=== PATIENT | female | born 1970 | race Caucasian/White ===

== ENCOUNTER 2016-12-10 12:13 | Emergency (ER) | payer OTHER ==
[2016-06-04 07:42] VITALS: BMI 40.3
[~2016-12-10 12:13] MED LIST: HYDROCODON-ACE1 EAC7 PO; IBUPROFEN800 MG PO; LISINOPRIL10 MG PO; MECLIZINE HCL12.5 MG PO; PERCOCET 10/3251 TA1 PO; ULTRAM50 MG PO
[2016-12-10 13:54] LABS: BASOPHILS 0.1 % (0.0-2.0); HEMATOCRIT 47.6 % (36.0-48.0); HEMOGLOBIN 16.3 g/dL (12-16); IMMATURE GRANULOCYTES 0.3 % (0-5); MCH 29.1 pg (26.0-34.0); MCHC 34.2 g/dL (31.0-37.0); MCV 84.8 fL (80.0-100.0); MEAN PLATELET VOLUME 9.6 fL (7.4-10.4); MONOCYTES 7.1 % (2-11); NEUTROPHILS 76.5 % (40-80); PLATELET COUNT 280 10x3/uL (130-400); RBC 5.61 10x6/uL (4.00-5.40); RDW 12.6 % (11.5-14.5); WBC 13.3 10x3/uL (4.8-10.8)
[2016-12-10 14:13] LABS: ALBUMIN 3.9 g/dL (3.4-5.0); ALKALINE PHOSPHATASE 83 U/L (46-116); ALT (SGPT) 23 U/L (10-68); CALC OSMOLALITY 280 mosm/kg (275-300); CALCIUM 9.4 mg/dL (8.5-10.1); CARBON DIOXIDE 25.1 mmol/L (21.0-32.0); CHLORIDE - SERUM 103 mmol/L (98-107); CREATININE - SERUM 0.7 mg/dL (0.6-1.3); GLUCOSE 119 mg/dL (74-106); POTASSIUM - SERUM 3.7 mmol/L (3.5-5.1); PROTEIN - SERUM 8.5 g/dL (6.4-8.2); SODIUM 140 mmol/L (136-145); UREA NITROGEN 14 mg/dL (7-18); eGFR NON AFRICAN AMERICAN > 90 mL/min (90-120)
[2016-12-10 20:19] LABS: APPEARANCE CLEAR (CLEAR); BILIRUBIN NEGATIVE (NEGATIVE); COLOR YELLOW (YELLOW); GLUCOSE NEGATIVE (NEGATIVE); KETONE MODERATE mg/dL (NEGATIVE); LEUKOCYTE ESTERASE NEGATIVE (NEGATIVE); NITRITE NEGATIVE (NEGATIVE); PROTEIN TRACE mg/dL (NEGATIVE); SPECIFIC GRAVITY 1.025 (1.005-1.020); UROBILINOGEN NORMAL (NORMAL)
== END 2016-12-10 21:34 | disposition home or self-care (01) ==
LOC: D.ER 12:13
PROVIDERS: Emergency Medicine
DX: R19.7 Diarrhea, unspecified (principal); R10.9 Unspecified abdominal pain; I10 Essential (primary) hypertension

== ENCOUNTER 2017-04-26 20:35 | Emergency (ER) | payer OTHER ==
[2016-06-04 07:42] VITALS: BMI 40.3
[2017-04-26 22:38] LABS: CKMB 0.3 U/L (0.0-3.6); CREATINE KINASE 64 UL (21-215); TROPONIN-I < 0.017 ng/mL (0.000-0.060)
== END 2017-04-26 23:08 | disposition home or self-care (01) ==
LOC: D.ER 20:35
PROVIDERS: Physician Assistant Medical
DX: M19.012 Primary osteoarthritis, left shoulder (principal); I10 Essential (primary) hypertension; F17.200 Nicotine dependence, unspecified, uncomplicated; I49.3 Ventricular premature depolarization

== ENCOUNTER 2017-12-25 13:06 | Emergency (ER) | payer OTHER ==
[2016-06-04 07:42] VITALS: BMI 40.3
[2017-12-25 15:03] LABS: BASOPHILS 0.2 % (0-2); EOSINOPHILS 3.6 % (0-7); HEMATOCRIT 40.8 % (36.0-48.0); IMMATURE GRANULOCYTES 0.2 % (0-5); LYMPHOCYTES 24.3 % (15-50); MCH 29.3 pg (26.0-34.0); MCHC 34.3 g/dL (31.0-37.0); MCV 85.4 fL (80.0-100.0); MEAN PLATELET VOLUME 9.3 fL (7.4-10.4); MONOCYTES 9.2 % (2-11); NEUTROPHILS 62.5 % (40-80); PLATELET COUNT 258 10x3/uL (130-400); RBC 4.78 10x6/uL (4.00-5.40); RDW 11.9 % (11.5-14.5); WBC 8.1 10x3/uL (4.8-10.8)
[2017-12-25 15:17] LABS: APPEARANCE CLEAR (CLEAR); BILIRUBIN NEGATIVE (NEGATIVE); COLOR DK YELLOW (YELLOW); GLUCOSE NEGATIVE (NEGATIVE); KETONE NEGATIVE (NEGATIVE); NITRITE NEGATIVE (NEGATIVE); PROTEIN NEGATIVE (NEGATIVE); UROBILINOGEN NORMAL (NORMAL)
[2017-12-25 15:17] LABS: ALBUMIN 3.7 g/dL (3.4-5.0); ANION GAP 17.2 mmol/L (8-16); BILIRUBIN - TOTAL 1.38 mg/dL (0.2-1.3); CALCIUM 9.7 mg/dL (8.5-10.1); CARBON DIOXIDE 24.5 mmol/L (21.0-32.0); CREATININE - SERUM 0.9 mg/dL (0.6-1.3); POTASSIUM - SERUM 3.7 mmol/L (3.5-5.1); PROTEIN - SERUM 8.3 g/dL (6.4-8.2)
== END 2017-12-25 16:16 | disposition home or self-care (01) ==
LOC: D.ER 13:06
PROVIDERS: Family Medicine
DX: R53.1 Weakness (principal); I10 Essential (primary) hypertension

== ENCOUNTER 2018-05-31 22:58 | Emergency (ER) | payer OTHER ==
[~2018-05-31] VITALS: Ht 157.5 cm; Wt 103.2 kg
[2018-05-31 23:02] VITALS: Ht 157.5 cm; Wt 103.2 kg
[2018-05-31] MEDS ORDERED: BUPRENORPHIN-N1 EACH (23:04)
[2018-05-31 23:54] LABS: BASOPHILS 0.2 % (0-2); EOSINOPHILS 2.1 % (0-7); HEMATOCRIT 37.9 % (36.0-48.0); HEMOGLOBIN 12.9 g/dL (12-16); IMMATURE GRANULOCYTES 0.3 % (0-5); MCH 29.2 pg (26.0-34.0); MCV 85.7 fL (80.0-100.0); MEAN PLATELET VOLUME 8.9 fL (7.4-10.4); MONOCYTES 10.1 % (2-11); NEUTROPHILS 57.3 % (40-80); PLATELET COUNT 259 10x3/uL (130-400); RBC 4.42 10x6/uL (4.00-5.40); RDW 12.8 % (11.5-14.5); WBC 8.6 10x3/uL (4.8-10.8)
[2018-05-31 23:55] LABS: APPEARANCE CLEAR (CLEAR); BILIRUBIN NEGATIVE (NEGATIVE); COLOR DK YELLOW (YELLOW); GLUCOSE NEGATIVE (NEGATIVE); KETONE MODERATE mg/dL (NEGATIVE); NITRITE NEGATIVE (NEGATIVE); PROTEIN NEGATIVE (NEGATIVE); UROBILINOGEN NORMAL (NORMAL)
[2018-06-01 00:10] LABS: ALBUMIN 3.3 g/dL (3.4-5.0); ALKALINE PHOSPHATASE 58 U/L (46-116); ALT (SGPT) 29 U/L (10-68); CALC OSMOLALITY 277 mosm/kg (275-300); CALCIUM 8.9 mg/dL (8.5-10.1); CARBON DIOXIDE 27.5 mmol/L (21.0-32.0); CHLORIDE - SERUM 102 mmol/L (98-107); CREATININE - SERUM 0.8 mg/dL (0.6-1.3); GLUCOSE 96 mg/dL (74-106); POTASSIUM - SERUM 3.8 mmol/L (3.5-5.1); PROTEIN - SERUM 7.4 g/dL (6.4-8.2); SODIUM 138 mmol/L (136-145); UREA NITROGEN 18 mg/dL (7-18); eGFR NON AFRICAN AMERICAN 81 mL/min (90-120)
[2018-06-01 00:30] LABS: CKMB 0.8 U/L (0.0-3.6); CREATINE KINASE 51 UL (21-215); PRO BNP 14 pg/mL (0-125); TROPONIN-I < 0.017 ng/mL (0.000-0.060)
[2018-06-01 01:06] VITALS: BP 113/75
== END 2018-06-01 01:07 | disposition home or self-care (01) ==
LOC: D.ER 22:58
PROVIDERS: Family Medicine
DX: R06.02 Shortness of breath (principal); R53.1 Weakness; I10 Essential (primary) hypertension

== ENCOUNTER 2018-06-23 07:15 | Outpatient (CLI) | payer OTHER ==
[~2018-06-23] VITALS: Ht 157.5 cm; Wt 103.2 kg
--- NOTE | ~2018-06-23 | HEMODYNAMI ---
PATIENT:AYESHA LEUNG MEDICAL RECORD: [id number] : 68 LOCATION:[facility] ADMISSION DATE: 06/23/18 Generatedon:06/23/201811:39 Patient name: AYESHA LEUNG Patient #: [id number] SSN: : 1970 Date of study: 06/23/2018 Page: Of Hemodynamic Procedure Report Patient Data Patient Demographics Procedure consent was obtained First Name: AYESHA Gender: Female Last Name: MADHU : 1970 Middle Initial: L Age: 47 year(s) Patient #: [id number] Race: Unknown Additional ID: [id number] Contact details Address: [address] [place] [address] [place] [address] State: [place] City: [place] Zip code: [address] Admission Admission Data Admission Date: 06/23/2018 Admission Time: 7:15 Procedure Procedure Types Cath Procedure Diagnostic Procedure LHC LHC w/Coronaries Procedure Description Procedure Date Procedure Date: 06/23/2018 Procedure Start Time: 11:27 Procedure End Time: 11:37 Procedure Staff Name Function Forest Benavidez MD Performing Physician Josephine Jeffers RT Monitor Lacey Cedeno RT Scrub Bay Judge RN Nurse Marialuisa Maldonado RN Nurse Procedure Data Cath Procedure Fluoroscopy Diagnostic fluoroscopy Total fluoroscopy Time: 2.7 time: 2.7 min min Diagnostic fluoroscopy Total fluoroscopy dose: 569 dose: 569 mGy mGy Contrast Material Contrast Material Type Amount (ml) Isovue 300 62 Entry Location Entry Primary Successful Side Size Upsize Upsize Entry Closure Reyes ccessful Closure Location (Fr) 1 (Fr) 2 (Fr) Remarks Device Remarks Radial Right 6 Fr Mechanical TR artery Short Compression Estimated blood loss: 10 ml Diagnostic catheters Device Type Used For End Catheter Placement DIAGNOSTIC [place] 110cm 5 Procedure Fr catheter ([id number]) Procedure Complications No complications Procedure Medications Medication Administration Route Dosage Oxygen etCO2 Nasal cannula 2 l/min Lidocaine 2% added to field 20 Heparin Flush Bag added to field 2 bags (1000units/500ml NS) 0.9% NaCl I.V. 100 ml/hr Versed I.V. 2 mg Fentanyl I.V. 50 mcg Versed I.V. 2 mg Radial Cocktail I.A. 1 syringe (Verapomil 2mg/Nitro 400mcg/Heparin 1500units) Hemodynamics Rest Heart Rate: 86 (bpm) Snapshots Pre Cath Intra NCS Post Cath Vital Signs Time Heart Resp SPO2 etCO2 NIBP (mmHg) Rhythm Pain Sedation Rate (ipm) (%) (mmHg) Status Level (bpm) 11:16:22 84 17 100 0 143/78(107) NSR 0 (11) 10(A) , No pain 11:20:36 86 19 100 0 131/79(117) NSR 0 (11) 10(A) , No pain 11:24:50 85 17 99 17.3 139/80(107) NSR 0 (11) 10(A) , No pain 11:29:00 91 15 99 20.3 115/85(97) NSR 0 (11) 9(A) , No pain 11:33:58 93 28 98 21.8 129/78(91) NSR 0 (11) 10(A) , No pain 11:38:51 81 22 100 21.1 126/71(96) NSR 0 (11) 10(A) , No pain Medications Time Medication Route Dose Verified Delivered Reason Notes Effectiveness by by 11:24:13 Oxygen etCO2 2 l/min Forest [place] used for Nasal Pramod Judge RN procedure cannula 11:24:20 Lidocaine 2% added 20ml Forest Buffie used for to vial Pramod Judge RN procedure field 11:24:30 Heparin Flush added 2 bags Forest Buffie used for Bag to Pramod Judge RN procedure (1000units/500ml field NS) 11:24:37 0.9% NaCl I.V. 100 Forestlavell [place] Per ml/hr Pramod Judge RN physician 11:26:18 Versed I.V. 2 mg Forest [place] for sedation Pramod Judge RN 11:26:23 Fentanyl I.V. 50 mcg Forest [place] for sedation Pramod Judge RN 11:28:12 Radial Cocktail I.A. 1 Forest Garg for (Verapomil syringe Pramod Benavidez MD vasodilation 2mg/Nitro 400mcg/Heparin 1500units) 11:30:12 Versed I.V. 2 mg Forest [place] for sedation Pramod Judge skill labor Log Time Note 11:04:35 Lacey Wilian RT(R) sent for patient. Start room use. 11:04:35 Time tracking: Regular hours (M-F 7:00 - 5:00) 11:05:32 Plan of Care:Hemodynamics will remain stable., Cardiac rhythm will remain stable., Comfort level will be maintained., Respiratory function will remain adequate., Patient/ family verbilizes understanding of procedure., Procedure tolerated without complication., Recovers from procedure without complications.. 11:05:37 Patient received from Pre/Post Procedure Room to CCL 2 Alert and oriented. Tansferred to table in Supine position. 11:15:11 Warm blankets applied, and christo hugger turned on for patient comfort. 11:15:12 Correct patient and procedure confirmed by team. 11:15:14 Signed procedure consent form obtained from patient. 11:15:15 ECG and BP/O2 sat monitors applied to patient. 11:15:16 Vital chart was started 11:15:19 Baseline sample Acquired. 11:15:21 Full Disclosure recording started 11:15:24 H&P Date Dictated: 06/23/2018 Within 30 days and on chart.. 11:15:26 Pre-procedure instructions explained to patient. 11:15:26 Pre-op teaching completed and patient verbalized understanding. 11:15:28 Family in patients room. 11:15:29 Patient NPO since Midnight. 11:15:31 Is the patient allergic to Iodine/contrast media? No. 11:15:32 Was the patient premedicated? No 11:15:33 Is patient on blood thinner?No 11:22:37 Patient diabetic? No. 11:22:46 Snore? Unknown 11:22:47 Sleep apnea? No 11:22:49 Deviated septum? No 11:22:51 Opens mouth fully? Yes 11:22:52 Sticks out tongue? Yes 11:22:56 Dentures? No ? 11:23:05 IV patent on arrival in left hand with 0.9% NaCl at KVO. 11:23:10 Lab results completed and on chart. 11:23:14 Right Radial & Right Groin area was prepped with chlora-prep and draped in sterile fashion 11:23:15 Alarms reviewed by R. N. 11:23:16 Sharps counted by scrub and verified by R.N. 11:23:21 Physician paged 11:23:26 Use device set Radial Dx or PCI 11:23:28 ACIST Syringe (47093) opened to sterile field. 11:23:28 Medline Cath Pack ([id number]) opened to sterile field. 11:23:29 Bag Decanter (2002S) opened to sterile field. 11:23:29 DIAGNOSTIC WIRE .035 260cm J wire (562800) opened to sterile field. 11:23:30 ACIST Hand Control (22990) opened to sterile field. 11:23:31 ACIST Manifold (14651) opened to sterile field. 11:23:31 Tegaderm 4 x 4 (1626W) opened to sterile field. 11:23:32 MBrace Wrist Support ([id number]) opened to sterile field. 11:23:33 NEEDLE Cook 21G 4cm Radial ([id number]) opened to sterile field. 11:23:37 SHEATH 6Fr Prelude Radial ([id number]) opened to sterile field. 11:24:13 Oxygen 2 l/min etCO2 Nasal cannula was administered by Bay Judge RN; used for procedure; 11:24:20 Lidocaine 2% 20ml vial added to field was administered by Bay Judge RN; used for procedure; 11:24:30 Heparin Flush Bag (1000units/500ml NS) 2 bags added to field was administered by Bay Judge RN; used for procedure; 11:24:37 0.9% NaCl 100 ml/hr I.V. was administered by Bay Judge RN; Per physician; 11:25:34 Physician arrived 11::35 --------ALL STOP TIME OUT------ 11::35 Final Timeout: patient, procedure, and site verified with staff and physician. All members of the team are in agreement. 11:25:38 Right Radial & Right Groin site verified by team. 11:25:41 Physical assessment completed. ASA score P 2 - A patient with mild systemic disease as per Forest Benavidez MD. 11:25:44 Sedation plan: IV Moderate Sedation Medication:Versed, Fentanyl 11:26:18 Versed 2 mg I.V. was administered by Bay Judge RN; for sedation; 11::23 Fentanyl 50 mcg I.V. was administered by Bay Judge RN; for sedation; 11::32 Procedure started. 11::41 Local anesthetic to right radial artery with Lidocaine 2% by Forest Benavidez MD.INITIAL ACCESS ONLY 11:27:51 A 6 Fr Short sheath was inserted into the Right Radial artery 11::02 A DIAGNOSTIC [place] 110cm 5 Fr catheter ([id number]) was advanced over the wire and used for Procedure. 11:28:12 Radial Cocktail (Verapomil 2mg/Nitro 400mcg/Heparin 1500units) 1 syringe I.A. was administered by Forest Benavidez MD; for vasodilation; 11:29:05 LV angiography performed. 11:30:05 LV gram done using ALEXANDER 11:30:09 EF : 60 % 11:30:12 Versed 2 mg I.V. was administered by Bay Judge RN; for sedation; 11:30:18 RCA angiography performed. 11:31:43 GUIDE 6FR XBLAD 3.5 catheter ([id number]) opened to sterile field. 11:31:48 LCA angiography performed. 11:33:46 Catheter removed. 11:34:01 TR BAND Standard ([id number]) opened to sterile field. 11:34:52 Sheath removed intact; hemostasis achieved with Mechanical Compression to the Right Radial artery. 11:35:09 Procedure ended.(Physican Out) 11:35:50 Fluoroscopy time 02.70 minutes. 11:35:55 Fluoroscopy dose: 569 mGy 11:35:55 Flurop Dose total: 569 11:35:59 Contrast amount:Isovue 300 62ml. 11:36:00 Sharps counted by scrub and verified by R.N. 11:36:02 TR band inflated with 11cc of air. 11:36:03 Insertion/operative site no bleeding no hematoma. 11:36:05 Post Procedure Pulses reassessed and unchanged 11:36:08 Post-procedure physical assessment completed. ASA score P 2 - A patient with mild systemic disease as per Forest Benavidez MD. 11:36:12 Post procedure rhythm: unchanged. 11:36:15 Estimated blood loss: 10 ml 11:36:17 Post procedure instruction explained to patient.Patient verbalizes understanding. 11:36:30 Procedure and supply charges have been captured, reviewed, submitted and are correct. 11:36:53 Procedure Complication : No complications 11:36:56 Vital chart was stopped 11:36:56 See physician's report for complete and final results. 11:36:58 Report given to Pre/Post Procedure Room. 11:37:01 Patient transfered to Pre/Post Procedure Room with Stretcher. 11:37:03 Procedure ended. 11:37:03 Full Disclosure recording stopped 11:37:11 End room use (Document Last) Device Usage Item Name Manufacture Quantity Catalog Number Hospital Part Current M inimal Lot# / Charge Number Stock Stock Serial# Code ACIST Syringe Acist 1 60836 [id number] 287240 412819 2 0 (95902) [employer] Medline Cath Medline 1 [id number] 679715 68901 235193 5 Pack ([id number]) Bag Decanter Microtek 1 2001S 769415 24711 547891 5 (2001S) Medical Inc. DIAGNOSTIC WIRE St Zac 1 256296 919653 990487 379396 3 0 .035 260cm J wire (536579) ACIST Hand Acist 1 07521 288336 923615 173209 5 Control (02286) [employer] Inc ACIST Manifold Acist 1 51717 697269 720413 728699 5 (92104) [employer] Inc Tegaderm 4 x 4 3M 1 1626W 817728 526942 294102 5 (1626W) MBrace Wrist Advanced 1 140-0250-00 219472 04146 186706 5 Support Vascular ([id number]) Dynamics NEEDLE Cook 21G Cook Medical 1 [id number] 916445 064288 223853 5 4cm Radial (U47809) SHEATH 6Fr Merit 1 [id number] 884679 637820 064251 5 Prelude Radial Medical ([id number]) DIAGNOSTIC Terumo 1 40-4780 989783 760329 416534 5 [place] 110cm 5 Fr catheter (063132) GUIDE 6FR XBLAD Cardinal 1 [id number] 435469 877830 117065 1 0 3.5 catheter Health ([id number]) TR BAND Terumo 1 [id number] 027818 575379 412594 4 0 Standard ([id number]) Signature Audit [place] Stage Time Signature Unsigned Intra-Procedure 06/23/2018 Josephine Jeffers 11:39:43 AM RT(R) Signatures Monitor : Josephine Jeffers Signature : RT Date : Time : [address] [place] [address]
--- NOTE | ~2018-06-23 | OP ---
PATIENT NAME: AYESHA LEUNG MEDICAL RECORD: [id number] :68 LOCATION:[facility] ADMISSION DATE: SURGEON: ORESTES PORTER MD DATE OF OPERATION: 06/23/2018 PROCEDURES: 1. Left heart catheterization. 2. Selective coronary angiography. 3. Left ventriculogram. INDICATION: Chest pain compatible with angina. PROCEDURE IN DETAIL: After informed consent was obtained with detailed description of risks and benefits as well as alternative therapies, the patient elected to proceed with angiogram and heart catheterization. The right radial area was prepped and draped in normal sterile fashion. The right radial artery was cannulated via modified Seldinger technique with placement of 6-[place] sheath. All catheters were exchanged through this sheath. FINDINGS: Left ventriculogram performed in standard 30-degree ALEXANDER view reveals good cardiac wall motion throughout all segments. Overall ejection fraction 55% to 60%. SELECTIVE CORONARY ANGIOGRAPHY: Left main, left anterior descending, left circumflex, and right coronary artery are smooth-walled vessels with no angiographic evidence of coronary artery disease. OVERALL IMPRESSION: 1. No angiographic evidence of coronary artery disease. 2. Normal left heart pressures. 3. Normal left ventricular systolic function. Chest pain is noncardiac in etiology. No further cardiac workup needs to be ascertained. TRANSINT:[id number] Voice Confirmation ID: [id number] DOCUMENT ID: [id number] ORESTES PORTER MD at 1903 CC: [id number] DICTATION DATE: 06/23/18 1137 ELEVATOR CONSTRUCTOR ELECTRIC: 06/23/18 1150 DEP CLI 06/23/18 [id number] [place] [address]
[~2018-06-23 07:15] MED LIST changes: +BUPRENORPHIN-N1 EACH
[2018-06-23 08:06] VITALS: BP 134/86; Ht 157.5 cm; Wt 103.2 kg
[2018-06-23 08:46] LABS: BASOPHILS 0.2 % (0-2); EOSINOPHILS 1.8 % (0-7); HEMATOCRIT 36.6 % (36.0-48.0); HEMOGLOBIN 12.6 g/dL (12-16); IMMATURE GRANULOCYTES 0.2 % (0-5); LYMPHOCYTES 30.4 % (15-50); MCH 29.6 pg (26.0-34.0); MCHC 34.4 g/dL (31.0-37.0); MCV 86.1 fL (80.0-100.0); MEAN PLATELET VOLUME 9.1 fL (7.4-10.4); MONOCYTES 7.4 % (2-11); PLATELET COUNT 296 10x3/uL (130-400); RBC 4.25 10x6/uL (4.00-5.40); RDW 12.5 % (11.5-14.5); WBC 9.4 10x3/uL (4.8-10.8)
[2018-06-23 09:07] LABS: CALC OSMOLALITY 281 mosm/kg (275-300); CALCIUM 9.2 mg/dL (8.5-10.1); CARBON DIOXIDE 29.9 mmol/L (21.0-32.0); CHLORIDE - SERUM 105 mmol/L (98-107); CREATININE - SERUM 0.7 mg/dL (0.6-1.3); GLUCOSE 119 mg/dL (74-106); POTASSIUM - SERUM 3.7 mmol/L (3.5-5.1); SODIUM 141 mmol/L (136-145); UREA NITROGEN 13 mg/dL (7-18); eGFR NON AFRICAN AMERICAN > 90 mL/min (90-120)
[2018-06-23] MEDS ORDERED: TENORMIN25 MG PO (12:36)
== END 2018-06-23 14:10 ==
LOC: D.CATH 07:15
PROVIDERS: Internal Medicine Interventional Cardiology
DX: R07.9 Chest pain, unspecified (principal); R94.39 Abnormal result of other cardiovascular function study

== ENCOUNTER 2019-01-27 20:09 | Emergency (ER) | payer OTHER ==
[~2019-01-27] VITALS: Ht 157.5 cm; Wt 102.3 kg
[~2019-01-27 20:09] MED LIST changes: +TENORMIN25 MG PO
[2019-01-27 20:25] VITALS: Ht 157.5 cm; Wt 102.3 kg
[2019-01-27] MEDS ORDERED: MEDROL DOSE PACK4 MG PO (20:51)
[2019-01-27 20:58] VITALS: BP 135/74
== END 2019-01-27 20:59 | disposition home or self-care (01) ==
LOC: D.ER 20:09
DX: L23.7 Allergic contact dermatitis due to plants, except food (principal)

== ENCOUNTER 2019-05-15 20:27 | Emergency (ER) | payer OTHER ==
[~2019-05-15] VITALS: Ht 157.5 cm; Wt 104.5 kg
[~2019-05-15 20:27] MED LIST changes: +MEDROL DOSE PACK4 MG PO
[2019-05-15 20:30] VITALS: Ht 157.5 cm; Wt 104.5 kg
[2019-05-15] MEDS ORDERED: FLUTICASONE PRO16 GM NASAL (20:43)
== END 2019-05-15 20:49 | disposition home or self-care (01) ==
LOC: D.ER 20:27
DX: B34.9 Viral infection, unspecified (principal)

== ENCOUNTER 2019-12-25 13:08 | Emergency (ER) | payer OTHER ==
[~2019-12-25] VITALS: Ht 157.5 cm; Wt 100.0 kg
[~2019-12-25 13:08] MED LIST changes: +FLUTICASONE PRO16 GM NASAL
[2019-12-25 13:17] VITALS: Ht 157.5 cm; Wt 100.0 kg
[2019-12-25] MEDS ORDERED: IBUPROFEN800 MG PO (13:34)
[2019-12-25 15:15] VITALS: BP 161/80
== END 2019-12-25 15:34 | disposition home or self-care (01) ==
LOC: D.ER 13:08
DX: M23.92 Unspecified internal derangement of left knee (principal); I10 Essential (primary) hypertension; W01.0XXA Fall on same level from slipping, tripping and stumbling without subsequent striking against object, initial encounter; Y93.9 Activity, unspecified; Y92.9 Unspecified place or not applicable

== ENCOUNTER → 2020-01-06 09:39 | Outpatient (CLI) | payer OTHER ==
[2019-12-25 13:17] VITALS: BMI 40.3
== END | disposition home or self-care (01) ==
LOC: D.MRI 09:39
PROVIDERS: ATTEND Clinical Nurse Specialist Family Health
DX: M25.562 Pain in left knee (principal)

== ENCOUNTER → 2021-01-12 23:35 | Outpatient (CLI) | payer OTHER ==
[2019-12-25 13:17] VITALS: BMI 40.3
== END | disposition home or self-care (01) ==
LOC: D.LABREF 23:35
PROVIDERS: ATTEND Orthopaedic Surgery
DX: M17.12 Unilateral primary osteoarthritis, left knee (principal)